=== PATIENT | female | born 1955 | race Hispanic/Latino ===

== ENCOUNTER 2020-03-07 02:27 | Inpatient (IN) | payer OTHER ==
[2020-03-07] MEDS ORDERED: MORPHINE 4 MG/ML SYR ONE (03:20)
[2020-03-07] MEDS ORDERED: ONDANSETRON 4 MG/2 ML VIAL ONE (03:20)
[2020-03-07] MEDS ORDERED: NA CHLORIDE 0.9% 500 ML ONE (03:20)
[2020-03-07] MEDS ORDERED: NA CHLORIDE 0.9% 1,000 ML ONE (03:20)
[2020-03-07] MEDS ORDERED: ASPIRIN 81 MG CHEWABLE TABLET ONE (03:27)
[2020-03-07 03:34] LABS: RBC Red Blood Cell Count 4.83 M/uL (3.86-4.86)
[2020-03-07 03:35] LABS: Absolute Lymphocytes (CBC) 2.2 K/uL (0.7-4.9); Lymphocytes % 26.9 % (15.3-44.8); MPV 7.7 fL (7.6-11.3)
[2020-03-07 03:56] LABS: ALT/SGPT 27 U/L (12-78); AST/SGOT 43 U/L (15-37); Albumin 3.4 g/dL (3.4-5.0); Alkaline Phosphatase 83 U/L (45-117); BUN Blood Urea Nitrogen 19 mg/dL (7-18); Bicarbonate 25 mmol/L (21-32); Bilirubin Direct < 0.1 mg/dL (0-0.2); Bilirubin Total 0.4 mg/dL (0.2-1.0); Glucose Level 123 mg/dL (74-106); Lipase 105 U/L (73-393); Magnesium 1.7 mg/dL (1.8-2.4); NT PRO-BNP 228 pg/mL (<125); Potassium 3.7 mmol/L (3.5-5.1); Protein, Total 7.7 g/dL (6.4-8.2); Sodium Level 139 mmol/L (136-145); Troponin (Emerg Dept Use Only) < 0.02 ng/mL (0.0-0.045)
[2020-03-07 04:04] LABS: Protime INR 1.01
[2020-03-07] MEDS ORDERED: Magnesium Sulfate 2gm IVPB 2 G/50 ML BAG IV ONE (04:20)
[2020-03-07] MEDS ORDERED: KETOROLAC 30 MG/ML INJ ONE (05:18)
--- NOTE | 2020-03-07 05:18 | ER ---
Nurse's Notes [facility] Name: Danika Hope Age: 64 yrs Sex: Female : 1955 Arrival Date: 03/07/2020 Time: 02:28 Bed 6 Private MD: Diagnosis: Pain in right leg-meastatic disease;Malignant neoplasm of unspecified site of left female breast-widely metastatic, axial and appendicular skeleton;Type 2 diabetes mellitus Presentation: 03/07 02:29 Chief complaint: EMS states: Pt reports mid back pain that started two months ago, pt ea reports it worsened today. Pt also complains of right knee pain. Reports she was diagnosed with breast cancer a week ago. Coronavirus screen: Proceed with normal triage. Ebola Screen: No symptoms or risks identified at this time. Initial Sepsis Screen: Does the patient meet any 2 criteria? No. Patient's initial sepsis screen is negative. Does the patient have a suspected source of infection? No. Patient's initial sepsis screen is negative. Risk Assessment: Do you want to hurt yourself or someone else? Patient reports no desire to harm self or others. Onset of symptoms was March 07, 2020. 02:29 Method Of Arrival: EMS: [facility] ea 02:29 Acuity: ANA 3 ea Triage Assessment: 02:33 General: Appears uncomfortable, Behavior is calm, cooperative, appropriate for age. ea Pain: Complains of pain in mid back area. Neuro: Level of Consciousness is awake, alert, obeys commands, Oriented to person, place, time, situation. Cardiovascular: Patient's skin is warm and dry. Respiratory: Airway is patent Respiratory effort is even, unlabored, Respiratory pattern is regular, symmetrical. Derm: Skin is pink, warm \T\ dry. Historical: - Allergies: 02:35 No Known Allergies; ea - Home Meds: 02:35 levothyroxine oral [Active]; Metformin Oral [Active]; ea - PMHx: 02:35 Hypothyroidism; Diabetes - NIDDM; ea - Immunization history:: Adult Immunizations not immunized. - Social history:: Smoking status: Patient/guardian denies using tobacco. - Family history:: not pertinent. Screenin:32 Abuse screen: Denies threats or abuse. Nutritional screening: No deficits noted. ea Tuberculosis screening: No symptoms or risk factors identified. Fall Risk None identified. Assessment: 02:33 Reassessment: see triage assessment. ea 04:32 Reassessment: Patient and/or family updated on plan of care and expected duration. Pain ea level reassessed. Patient is alert, oriented x 3, equal unlabored respirations, skin warm/dry/pink. Pt reports pain has decreased. 05:46 Reassessment: Patient and/or family updated on plan of care and expected duration. Pain ea level reassessed. Patient is alert, oriented x 3, equal unlabored respirations, skin warm/dry/pink. Awaiting on CT results. 06:10 Reassessment: Patient and/or family updated on plan of care and expected duration. Pain ea level reassessed. Patient is alert, oriented x 3, equal unlabored respirations, skin warm/dry/pink. Discharge instruction given to patient, verbalized the understanding of instruction. Pt awaiting on daughter to give her ride home. 06:16 Reassessment: Patient and/or family updated on plan of care and expected duration. Pain ea level reassessed. Patient is alert, oriented x 3, equal unlabored respirations, skin warm/dry/pink. Pt assisted to private vehicle, daughter at facility to transport pt home, pt tolerating well. 06:29 Reassessment: Pt complaining of right knee pain, pt reports she is unable to tolerate ea weight. Provider notified. Provider reported he would hospitalize pt, verbal order obtained to discontinue fentanyl patch 50 mcg. 07:00 Reassessment: RECD REPORT FROM BENJI FOX. 64YO HF P/W GENERALIZED PAIN 2/2 MT CANCER. bp ADMIT IN PROCESS. 07:30 Reassessment: DR DODD AT B/S. ADMIT CANCELLED, PT TBDC WHEN HOME HEALTH ARRANGED. bp 08:00 Reassessment: PER DR MEJIA AND DR KLINE, ADMIT TO PROCEED FOR PAIN CONTROL. ADMIT bp IN PROCESS. 10:46 Reassessment: ADMIT COMPLETE. bp Vital Signs: 02:29 BP 131 / 87; Pulse 68; Resp 18; Temp 98.1; Pulse Ox 98% on R/A; Weight 77.11 kg; Height ea 5 ft. 7 in. (170.18 cm); 04:33 BP 137 / 81; Pulse 55; Resp 18; Pulse Ox 98% ; ea 05:48 BP 110 / 67; Pulse 58; Resp 18; Pulse Ox 99% on R/A; ea 06:11 BP 114 / 67; Pulse 65; Resp 18; Temp 97.8; Pulse Ox 100% ; ea 07:00 BP 107 / 67; Pulse 60; Resp 16; Pulse Ox 94% ; bp 09:00 BP 113 / 71; Pulse 61; Resp 14; Pulse Ox 95% ; bp 10:44 BP 105 / 63; Pulse 61; Resp 15; Pulse Ox 94% ; bp 02:29 Body Mass Index 26.63 (77.11 kg, 170.18 cm) ea ED Course: 02:28 Patient arrived in ED. ds1 02:28 Ana Combs, DOMINIQUE is Primary Nurse. ea 02:30 Manas Kline MD is Attending Physician. lucy 02:32 Triage completed. ea 02:32 Patient has correct armband on for positive identification. Bed in low position. Call ea light in reach. Side rails up X2. 02:32 Arm band placed on right wrist. Patient placed in an exam room, on a stretcher, on ea pulse oximetry. 03:16 EKG done, by ED staff, reviewed by Manas Kline MD. jd3 03:22 XRAY Chest (1 view) In Process Unspecified. EDMS 03:23 Knee Right 3 View XRAY In Process Unspecified. EDMS 03:25 Inserted saline lock: 20 gauge in right antecubital area, using aseptic technique. tt3 03:30 Troponin (emerg Dept Use Only) Sent. ds4 03:30 PT-INR Sent. ds4 03:30 NT PRO-BNP Sent. ds4 03:30 Magnesium Sent. ds4 03:30 LFT's Sent. ds4 03:30 CBC with Diff Sent. ds4 03:30 Basic Metabolic Panel Sent. ds4 04:04 Notified ED physician of other ultrasound negative per Type Soldering Machine Tender. sg 04:05 UPPER EXTREMITY VENOUS UNILATE In Process Unspecified. EDMS 04:37 CT Aorta for Dissection In Process Unspecified. EDMS 05:13 Santa Mancilla MD is Referral Physician. lucy 06:10 No provider procedures requiring assistance completed. IV discontinued, intact, ea bleeding controlled, No redness/swelling at site. Pressure dressing applied. 06:28 Sanjiv Holliday MD is Hospitalizing Provider. lucy 06:45 Inserted saline lock: 20 gauge in right antecubital area, using aseptic technique. ds4 Missed attempt(s): 20 gauge in right antecubital area. Bleeding controlled, band aid applied, catheter tip intact. 07:05 Report given to Sheldon FOX. ea 07:12 Sheldon Alcantar, RN is Primary Nurse. bp Administered Medications: 03:10 Drug: NS 0.9% 500 ml Route: IV; Rate: bolus; Site: right antecubital; ea 04:30 Follow up: Response: No adverse reaction; IV Status: Completed infusion; IV Intake: ea 500ml 03:12 Drug: Zofran (Ondansetron) 4 mg Route: IVP; Site: right antecubital; ea 03:58 Follow up: Response: No adverse reaction ea 03:15 Drug: NS 0.9% 1000 ml Route: IV; Rate: 125 ml/hr; Site: right antecubital; ea 05:45 Follow up: Response: No adverse reaction; IV Status: Completed infusion ea 03:25 Drug: Aspirin Chewable Tablet 162 mg Route: PO; ea 03:58 Follow up: Response: No adverse reaction ea 03:27 Drug: morphine 2 mg {Note: RASS 1.} Route: IVP; Site: right antecubital; ea 03:45 Drug: morphine 2 mg Route: IVP; Site: right antecubital; ea 04:30 Follow up: Response: No adverse reaction; Pain is decreased; RASS: Alert and Calm (0) ea 04:30 Drug: Magnesium Sulfate 1 grams Route: IVPB; Infused Over: 1 hrs; Site: right ea antecubital; 05:30 Follow up: Response: No adverse reaction; IV Status: Completed infusion ea 05:29 Drug: TORadol 30 mg Route: IVP; Site: right antecubital; ea 05:44 Follow up: Response: No adverse reaction ea 05:29 Drug: fentaNYL Patch (50 mcg/hr) 1 patches Route: Transdermal; Site: anterior chest ea wall; 06:31 Follow up: Response: Other; verbal order obtained to discontinue patch, patch removed. ea 06:47 Drug: Dilaudid 0.5 mg {Note: RASS 1.} Route: IVP; Site: right upper arm; ea 06:58 Follow up: Response: No adverse reaction; Pain is decreased ea 06:48 Drug: Decadron - Dexamethasone 10 mg Route: IVP; Site: right upper arm; ea 06:58 Follow up: Response: No adverse reaction ea Intake: 04:30 IV: 500ml; Total: 500ml. ea Outcome: 05:17 Discharge ordered by . lucy 06:32 Decision to Hospitalize by Provider. lucy 10:42 Admitted to Med/surg accompanied by tech, via stretcher, room 229, with chart, Report bp called to ANALIA RN 10:42 Condition: stable 10:42 Instructed on the need for admit. 11:13 Patient left the ED. bp Signatures: Dispatcher [employer] EDMS Moy Musa RN Manas Diehl MD MD cha Sanford, Demi ds1 Alberto Quezada ds4 Ana Combs RN RN ea Davies, Jonathon, RN RN jSheldon Kramer RN RN bp Maverick, Zi tt3 Corrections: (The following items were deleted from the chart) 06:12 06:11 BP 114 / 67; Pulse 18bpm; Resp 65bpm; Pulse Ox 100%; Temp 97.8F; ea ea 06:27 05:29 fentaNYL Patch (50 mcg/hr) 1 patches Transdermal in anterior chest wall ea [facility] 06: 05:44 Response: No adverse reaction; Pain is decreased; RASS: Alert and Calm (0) ea lucy 43 06:16 Condition: stable ea bp 10:43 06:16 Discharge instructions given to patient, Instructed on discharge instructions, bp follow up and referral plans. medication usage, Demonstrated understanding of instructions, follow-up care, medications, Prescriptions given X 2, ea 06:16 Discharged to home via wheelchair, with family, ea bp
--- NOTE | 2020-03-07 05:18 | EDPHYS ---
Physician Documentation [facility] Name: Danika Hope Age: 64 yrs Sex: Female : 1955 Arrival Date: 03/07/2020 Time: 02:28 Bed 6 Private MD: Manas Ratliff HPI: 03/07 02:59 This 64 yrs old Female presents to ER via EMS with complaints of chest wall lucy pain, left arm swelling and right knee pain. 02:59 The patient or guardian complains of decreased range of motion, pain, swelling. The lucy complaints affect the left bicep, left antecubital area, dorsal aspect of left forearm, left tricep, left elbow and palmar aspect of left forearm. Context: resulted from cancer of left breast, infiltrating to left arm and axilla. Onset: The symptoms/episode began/occurred 3 day(s) ago. Treatment prior to arrival includes: no previous treatment. Modifying factors: The symptoms are alleviated by nothing. the symptoms are aggravated by nothing. The patient or guardian reports chest pain that is located primarily in the substernal area, anterior chest wall, chest diffusely. The pain does not radiate. Associated signs and symptoms: The patient has no apparent associated signs or symptoms. Historical: - Allergies: 02:35 No Known Allergies; ea - Home Meds: 02:35 levothyroxine oral [Active]; Metformin Oral [Active]; ea - PMHx: 02:35 Hypothyroidism; Diabetes - NIDDM; ea - Immunization history:: Adult Immunizations not immunized. - Social history:: Smoking status: Patient/guardian denies using tobacco. - Family history:: not pertinent. ROS: 02:59 Constitutional: Negative for fever, chills, and weight loss, Eyes: Negative for injury, lucy pain, redness, and discharge, ENT: Negative for injury, pain, and discharge, Neck: Negative for injury, pain, and swelling, Respiratory: Negative for shortness of breath, cough, wheezing, and pleuritic chest pain, Abdomen/GI: Negative for abdominal pain, nausea, vomiting, diarrhea, and constipation, Back: Negative for injury and pain, : Negative for injury, bleeding, discharge, and swelling, Skin: Negative for injury, rash, and discoloration, Neuro: Negative for headache, weakness, numbness, tingling, and seizure, Psych: Negative for depression, anxiety, suicide ideation, homicidal ideation, and hallucinations, Allergy/Immunology: Negative for hives, rash, and allergies, Endocrine: Negative for neck swelling, polydipsia, polyuria, polyphagia, and marked weight changes, Hematologic/Lymphatic: Negative for swollen nodes, abnormal bleeding, and unusual bruising. 02:59 Cardiovascular: Positive for chest pain, with movement. 02:59 Respiratory: Positive for cough, shortness of breath, on exertion. 02:59 MS/extremity: Positive for decreased range of motion, pain, swelling, tenderness, of the left arm. Exam: 02:59 Constitutional: This is a well developed, well nourished patient who is awake, alert, lucy and in no acute distress. Head/Face: Normocephalic, atraumatic. Eyes: Pupils equal round and reactive to light, extra-ocular motions intact. Lids and lashes normal. Conjunctiva and sclera are non-icteric and not injected. Cornea within normal limits. Periorbital areas with no swelling, redness, or edema. ENT: Nares patent. No nasal discharge, no septal abnormalities noted. Tympanic membranes are normal and external auditory canals are clear. Oropharynx with no redness, swelling, or masses, exudates, or evidence of obstruction, uvula midline. Mucous membranes moist. Neck: Trachea midline, no thyromegaly or masses palpated, and no cervical lymphadenopathy. Supple, full range of motion without nuchal rigidity, or vertebral point tenderness. No Meningismus. Cardiovascular: Regular rate and rhythm with a normal S1 and S2. No gallops, murmurs, or rubs. Normal PMI, no JVD. No pulse deficits. Respiratory: Lungs have equal breath sounds bilaterally, clear to auscultation and percussion. No rales, rhonchi or wheezes noted. No increased work of breathing, no retractions or nasal flaring. Back: No spinal tenderness. No costovertebral tenderness. Full range of motion. Female : Normal external genitalia. Skin: Warm, dry with normal turgor. Normal color with no rashes, no lesions, and no evidence of cellulitis. Neuro: Awake and alert, GCS 15, oriented to person, place, time, and situation. Cranial nerves II-XII grossly intact. Motor strength 5/5 in all extremities. Sensory grossly intact. Cerebellar exam normal. Normal gait. Psych: Awake, alert, with orientation to person, place and time. Behavior, mood, and affect are within normal limits. 02:59 Chest/axilla: Inspection: no acute changes, Palpation: tenderness, that is mild, that is moderate, of the anterior aspect of left upper chest, left lateral posterior chest, left lateral anterior chest, left nipple and left breast, Axilla: lymphadenopathy, that is large, mass, that is moderate in size, Breasts: swelling, tenderness, that is moderate, of the left breast, Lymph nodes: supraclavicular nodes, Axillary nodes are 02:59 Musculoskeletal/extremity: DVT Exam: no swelling, no tenderness, negative Homans' sign noted on exam, no appreciated bluish discoloration, no erythema, no increased warmth, pain, that is mild, of the right leg, of the right knee. 03:14 ECG was reviewed by the Attending Physician. [facility] Vital Signs: 02:29 BP 131 / 87; Pulse 68; Resp 18; Temp 98.1; Pulse Ox 98% on R/A; Weight 77.11 kg; Height ea 5 ft. 7 in. (170.18 cm); 04:33 BP 137 / 81; Pulse 55; Resp 18; Pulse Ox 98% ; ea 05:48 BP 110 / 67; Pulse 58; Resp 18; Pulse Ox 99% on R/A; ea 06:11 BP 114 / 67; Pulse 65; Resp 18; Temp 97.8; Pulse Ox 100% ; ea 07:00 BP 107 / 67; Pulse 60; Resp 16; Pulse Ox 94% ; bp 09:00 BP 113 / 71; Pulse 61; Resp 14; Pulse Ox 95% ; bp 10:44 BP 105 / 63; Pulse 61; Resp 15; Pulse Ox 94% ; bp 02:29 Body Mass Index 26.63 (77.11 kg, 170.18 cm) ea MDM: 02:34 Patient medically screened. [facility] 03:10 Data reviewed: vital signs, nurses notes, lab test result(s), EKG, radiologic studies, [facility] CT scan, plain films. 03:11 Differential diagnosis: contusion, coronary artery disease chest wall pain, congestive lucy heart failure hiatal hernia, pancreatitis, pleurisy, pulmonary embolus. HEART Score: History: Slightly Suspicious (0), ECG: Normal (0), Age: > 45 and < 65 years (1), Risk Factors: 1 or 2 risk factors (1), [DM] [+ Family HX] Troponin: < or = 1 x Normal Limit (0). The patient was given aspirin in the Emergency Department. The patient's deep vein thrombosis risk score was calculated as follows: the patient is receiving ongoing or pallative cancer treatment (1.0 Pts) Total Score: 1 to 2 points. This patient was found to be at moderate risk for a deep vein thrombosis by using the Well's assessment criteria. The patient's pulmonary embolism risk score was calculated as follows: suspected deep vein thrombosis (3 Pts) patient has experienced immobilization or surgery in the last four weeks (1.5 Pts) malignancy Total Score: 3-6 points. This patient was found to be at moderate risk for a pulmonary embolism by using the Well's assessment criteria. JENNIFER Risk Score: TOTAL SCORE = 0. 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 Test interpretation: by ED physician or midlevel provider: ECG, plain radiologic studies. Counseling: I had a detailed discussion with the patient and/or guardian regarding: the historical points, exam findings, and any diagnostic results supporting the discharge/admit diagnosis, lab results, radiology results, the need for further work-up and treatment in the hospital. 05:19 Medication response: Zofran markedly relieved the patient's nausea. Awaiting: CT scan lucy results. ED course: widely metastatic breast cancer, extensive bony metastisis. 05:43 ED course: pt will keep follow up as scheduled with oncology in [place]. [facility] 03/07 02:55 Order name: Basic Metabolic Panel; Complete Time: 04:08 lucy 03/07 02:55 Order name: CBC with Diff; Complete Time: 03:40 lucy 03/07 02:55 Order name: LFT's; Complete Time: 04:08 03/07 02:55 Order name: Magnesium; Complete Time: 04:08 lucy 03/07 02:55 Order name: NT PRO-BNP; Complete Time: 04:08 03/07 02:55 Order name: PT-INR; Complete Time: 04:27 lucy 03/07 02:55 Order name: Troponin (emerg Dept Use Only); Complete Time: 04:08 [facility] 03/07 02:55 Order name: XRAY Chest (1 view) [facility] 03/07 02:55 Order name: Lipase; Complete Time: 04:08 [facility] 03/07 02:55 Order name: CT Aorta for Dissection [facility] 03/07 02:55 Order name: Knee Right 3 View XRAY [facility] 03/07 03:39 Order name: UPPER EXTREMITY VENOUS UNILATE EDMD 03/07 02:55 Order name: EKG; Complete Time: 02:57 [facility] 03/07 02:55 Order name: Cardiac monitoring; Complete Time: 03:16 [facility] 03/07 02:55 Order name: EKG - Nurse/Tech; Complete Time: 03:16 [facility] 03/07 02:55 Order name: IV Saline Lock; Complete Time: 03:29 [facility] 03/07 02:55 Order name: Labs collected and sent; Complete Time: 03:29 [facility] 03/07 02:55 Order name: O2 Per Protocol; Complete Time: 03:08 [facility] 03/07 02:55 Order name: O2 Sat Monitoring; Complete Time: 03:08 [facility] 03/07 03:38 Order name: Labs - recollect needed: a blue top please; Complete Time: 03:56 sg EC:14 Rate is 59 beats/min. Rhythm is regular. QRS Baldwin is Normal. MA interval is normal. QRS lucy interval is normal. QT interval is normal. No Q waves. T waves are Normal. No ST changes noted. Clinical impression: Sinus bradycardia and No evidence of ischemia. Interpreted by me. Reviewed by me. Administered Medications: 03:10 Drug: NS 0.9% 500 ml Route: IV; Rate: bolus; Site: right antecubital; ea 04:30 Follow up: Response: No adverse reaction; IV Status: Completed infusion; IV Intake: ea 500ml 03:12 Drug: Zofran (Ondansetron) 4 mg Route: IVP; Site: right antecubital; ea 03:58 Follow up: Response: No adverse reaction ea 03:15 Drug: NS 0.9% 1000 ml Route: IV; Rate: 125 ml/hr; Site: right antecubital; ea 05:45 Follow up: Response: No adverse reaction; IV Status: Completed infusion ea 03:25 Drug: Aspirin Chewable Tablet 162 mg Route: PO; ea 03:58 Follow up: Response: No adverse reaction ea 03:27 Drug: morphine 2 mg {Note: RASS 1.} Route: IVP; Site: right antecubital; ea 03:45 Drug: morphine 2 mg Route: IVP; Site: right antecubital; ea 04:30 Follow up: Response: No adverse reaction; Pain is decreased; RASS: Alert and Calm (0) ea 04:30 Drug: Magnesium Sulfate 1 grams Route: IVPB; Infused Over: 1 hrs; Site: right ea antecubital; 05:30 Follow up: Response: No adverse reaction; IV Status: Completed infusion ea 05:29 Drug: TORadol 30 mg Route: IVP; Site: right antecubital; ea 05:44 Follow up: Response: No adverse reaction ea 05:29 Drug: fentaNYL Patch (50 mcg/hr) 1 patches Route: Transdermal; Site: anterior chest ea wall; 06:31 Follow up: Response: Other; verbal order obtained to discontinue patch, patch removed. ea 06:47 Drug: Dilaudid 0.5 mg {Note: RASS 1.} Route: IVP; Site: right upper arm; ea 06:58 Follow up: Response: No adverse reaction; Pain is decreased ea 06:48 Drug: Decadron - Dexamethasone 10 mg Route: IVP; Site: right upper arm; ea 06:58 Follow up: Response: No adverse reaction ea Disposition: 03/07/20 06:32 Hospitalization ordered by Sanjiv Holliday for Inpatient Admission. Preliminary diagnosis are Pain in right leg - meastatic disease, Malignant neoplasm of unspecified site of left female breast - widely metastatic, axial and appendicular skeleton, Type 2 diabetes mellitus. - Bed requested for Telemetry/MedSurg (Inpatient). - Status is Inpatient Admission. bp - Condition is Fair. - Problem is new. - Symptoms have improved. Signatures: Dispatcher [employer] EDLea Mcfadden RN RN dw Gay, Steven, RN RN sg Anderson, Corey, MD MD cha Antunez, Elena, RN RN ea Peltier, Brian, RN RN bp Corrections: (The following items were deleted from the chart) 03:16 02:57 Angio Aorta For Dissection+CT.RAD.BRZ ordered. EDMS EDMS 03:29 02:42 Urine Dipstick-Ancillary ordered. alex jd3 03:38 03:37 Extremity Venous Uni Ltd+US.RAD.BRZ ordered. EDMD EDMS 03:39 03:38 Extrem Venous W Compress Jose A ordered. EDMD EDMS 05:37 05:17 03/07/2020 05:17 Discharged to Home. Impression: Malignant neoplasm of lucy unspecified site of left female breast - widlely metastatic; Type 2 diabetes mellitus. Condition is Stable. Forms are Medication Reconciliation Form, Thank You Letter, Antibiotic Education, Prescription Opioid Use. Follow up: Private Physician; When: 2 - 3 days; Reason: Recheck today's complaints, Continuance of care, Re-evaluation by your physician. Follow up: [place]; When: 2 - 3 days; Reason: Recheck today's complaints, Continuance of care, Re-evaluation by your physician. Problem is new. Symptoms have improved. [facility] 06:27 05:37 03/07/2020 05:17 Discharged to Home. Impression: Malignant neoplasm of lucy unspecified site of left female breast - widlely metastatic; Type 2 diabetes mellitus; Low back pain; Acute pain, not elsewhere classified. Condition is Stable. Discharge Instructions: Type 2 Diabetes Mellitus, Diagnosis, Adult, Breast Cancer, Female, Breast Biopsy, Care After, [id number], Type 2 Diabetes Mellitus, Diagnosis, Adult, [id number]. Prescriptions for Tylenol-Codeine #3 300-30 mg Oral Tablet - take 2 tablet by ORAL route every 6 hours As needed; 30 tablet, Motrin IB 200 mg Oral Tablet - take 2 tablet by ORAL route every 6 hours As needed as needed with food; 30 tablet. and Forms are Medication Reconciliation Form, Thank You Letter, Antibiotic Education, Prescription Opioid Use. Follow up: Private Physician; When: 2 - 3 days; Reason: Recheck today's complaints, Continuance of care, Re-evaluation by your physician. Follow up: [place]; When: 2 - 3 days; Reason: Recheck today's complaints, Continuance of care, Re-evaluation by your physician. Problem is new. Symptoms have improved. [facility] 09:57 06:32 Hospitalization Ordered by Sanjiv Holliday MD for Inpatient Admission. Preliminary dw diagnosis is Pain in right leg - meastatic disease; Malignant neoplasm of unspecified site of left female breast - widely metastatic, axial and appendicular skeleton; Type 2 diabetes mellitus. Bed requested for Telemetry/MedSurg (Inpatient). Status is Inpatient Admission. Condition is Fair. Problem is new. Symptoms have improved. [facility] 11:13 09:57 03/07/2020 06:32 Hospitalization Ordered by Sanjiv Holliday MD for Inpatient bp Admission. Preliminary diagnosis is Pain in right leg - meastatic disease; Malignant neoplasm of unspecified site of left female breast - widely metastatic, axial and appendicular skeleton; Type 2 diabetes mellitus. Bed requested for Telemetry/MedSurg (Inpatient). Status is Inpatient Admission. Condition is Fair. Problem is new. Symptoms have improved. dw
[2020-03-07] MEDS ORDERED: FENTANYL 50 MCG/PATCH TD ONE (05:31)
[2020-03-07] MEDS ORDERED: HYDROMORPHONE HCL 0.5 MG/0.5 ML INJ ONE (06:42)
[2020-03-07] MEDS ORDERED: dexAMETHasone 10 MG/ML VIAL ONE (06:42)
--- NOTE | 2020-03-07 07:33 | RAD REPORT ---
EXAM DESCRIPTION: US - UPPER EXTREMITY VENOUS UNILATE - 03/07/2020 4:10 am CLINICAL HISTORY: /left arm swelling. COMPARISON: None. FINDINGS: Left internal jugular vein, left subclavian vein, left axillary vein, left brachial vein, left cephalic, left basilic, left ulnar and left radial veins demonstrate phasic signal. The veins ar e compressible. Doppler demonstrates good flow. . IMPRESSION: No sonographic evidence of thrombus involving the left upper extremity veins.
--- NOTE | 2020-03-07 07:41 | RAD REPORT ---
EXAM DESCRIPTION: Christ Single View03/07/2020 3:22 am CLINICAL HISTORY: Chest pain COMPARISON: none FINDINGS: Small left pleural effusion with left basilar opacity. Right lung appears clear The heart is normal size IMPRESSION: Small left pleural effusion. Left basilar opacity may represent atelectasis or pneumoni a
--- NOTE | 2020-03-07 07:56 | RAD REPORT ---
EXAM DESCRIPTION: RAD - Knee Right 3 View - 03/07/2020 3:23 am CLINICAL HISTORY: Right knee pain FINDINGS: No fracture or dislocation is seen. No significant bone or joint abnormality
--- NOTE | 2020-03-07 08:54 | RAD REPORT ---
EXAM DESCRIPTION: CT - Angio Aorta For Dissection - 03/07/2020 5:45 am ADDENDUM #1 THIS REPORT CONTAINS FINDINGS THAT MAY BE CRITICAL TO PATIENT CARE: The findings were verbally discussed via telephone conference with Dr. Manas Simmons by Dr. Kirk Estrada on 4:52 AM CDT .The results were acknowledged and understood. The patient has a history of known malignant breast cancer. IMPRESSION: 1. No evidence of aneurysm or dissection. 2. Extensive adenopathy along the left chest wall, left axilla, and supraclavicular region coupled with diffuse skin thickening of the left breast. Findings are most concerning for breast cancer. 3. Extensive bony metastasis throughout the visualized axial and appendicular skeleton. There is he ight loss of the L4 vertebral body without retropulsion. 4. Moderate left pleural effusion with associated atelectasis. Electronically signed by: Edilma Estrada MD 03/07/2020 4:54 AM CDT End of Addendum EXAM DESCRIPTION: CT Angiography Chest, Abdomen and Pelvis With Intravenous Contrast CLINICAL HISTORY: The patient is 64 years old and is Female; Chest pain;Dyspnea;Pain;PE;Rib Pain - L eft TECHNIQUE: Axial computed tomographic angiography images of the chest, abdomen and pelvis with intra venous contrast. Sagittal and coronal reformatted images were created and reviewed. This CT exam was performed using one or more of the following dose reduction techniques: automated exposure cont rol, adjustment of the mA and/or kV according to patient size, and/or use of iterative reconstruction technique. MIP reconstructed images were created and reviewed. COMPARISON: No relevant prior studies available. FINDINGS: VASCULATURE: AORTA: No acute findings. No aortic aneurysm. No dissection. PULMONARY ARTERIES: Unremarkable as visualized. No pulmonary embolism is identified. GREAT VESSELS OF AORTIC ARCH: No acute findings. No dissection. No arterial occlusion or sig nificant stenosis. CELIAC TRUNK AND MESENTERIC ARTERIES: No acute findings. No occlusion or significant stenosis. RENAL ARTERIES: No acute findings. No occlusion or significant stenosis. ILIAC ARTERIES: No acute findings. No occlusion or significant stenosis. CHEST: LUNGS: Compressive atelectasis within the left lower lobe is noted. The right lung is relative ly clear. PLEURAL SPACE: A moderate-sized left pleural effusion is present. No pneumothorax. HEART: Unremarkable. No cardiomegaly. No significant pericardial effusion. ABDOMEN: LIVER: The liver is mildly fatty. GALLBLADDER AND BILE DUCTS: Unremarkable. No calcified stones. No ductal dilation. PANCREAS: Unremarkable. No ductal dilation. No mass. SPLEEN: Unremarkable. No splenomegaly. ADRENALS: Unremarkable. No mass. KIDNEYS AND URETERS: Unremarkable. No hydronephrosis. No solid mass. STOMACH AND BOWEL: The stomach is decompressed. The small bowel is normal in caliber. Stool is n oted throughout the colon. There is no mucosal thickening or evidence of bowel obstruction. PELVIS: APPENDIX: No findings to suggest acute appendicitis. BLADDER: Unremarkable. No mass. REPRODUCTIVE: Unremarkable as visualized. CHEST, ABDOMEN and PELVIS: INTRAPERITONEAL SPACE: Unremarkable. No significant fluid collection. No free air. BONES/JOINTS: Extensive scattered lucent foci are noted throughout the visualized axial and appe ndicular skeleton. No acute fracture. No dislocation. SOFT TISSUES: Diffuse skin thickening of the left breast is noted. Edema of the soft tissues of the left breast is present. LYMPH NODES: Multiple enlarged left axillary and supraclavicular lymph nodes are present. Surrou nding inflammation and edema is noted. IMPRESSION: 1. No evidence of aneurysm or dissection. 2. Extensive adenopathy along the left chest wall, left axilla, and supraclavicular region coupled with diffuse skin thickening of the left breast. Findings are most concerning for breast cancer. 3. Extensive bony metastasis throughout the visualized axial and appendicular skeleton. Electronically signed by: Edilma Estrada MD 03/07/2020 4:49 AM CDT Due to temporary technical issues with the PACS/Fluency reporting system, reports are being signed by the in house radiologist without review as a courtesy to ensure prompt reporting. The interpreting r adiologist is fully responsible for the content of the report.
--- NOTE | 2020-03-07 09:54 | EKG ---
Test Date: 2020-03-07 Test Time: 03:14:19 Mat Tester: MIA MEASUREMENT RESULTS: Intervals: Rate: 59 MN: 132 QRSD: 104 QT: 398 QTc: 394 [place]: P: 47 MN: 132 QRS: 12 T: 41 INTERPRETIVE STATEMENTS: Sinus bradycardia Cannot rule out Anterior infarct, age undetermined Abnormal ECG Compared to ECG 01/02/1997 15:42:00 Myocardial infarct finding now present Sinus rhythm no longer present Electronically Signed On 03-07-20 09:53:47 CDT by Javier Moore
[2020-03-07 11:57] VITALS: BMI 26.6
[2020-03-07] MEDS ORDERED: NA CHLORIDE 0.9% 1,000 ML IV SCH (12:04)
[2020-03-07] MEDS: INSULIN -REGULAR HUMAN 50 UNIT/0.5 ML ML SQ SCH ×3 (12:04→20:17)
[2020-03-07] MEDS ORDERED: ACETAMINOPHEN 500 MG TAB PO PRN (12:04)
[2020-03-07] MEDS ORDERED: TRAMADOL HCL 50 MG TAB PO PRN (12:04)
[2020-03-07] MEDS: ENOXAPARIN 40 MG/0.4 ML SQ SCH (12:55)
[2020-03-07] MEDS: LIDOCAINE 4% PATCH TOP SCH (12:56)
--- NOTE | 2020-03-07 13:08 | P.HP ---
Certification for Inpatient Patient admitted to: Observation With expected LOS: <2 Midnights Patient will require the following post-hospital care: Home Health Services Practitioner: I am a practitioner with admitting privileges, knowledge of patient current condition, hospital course, and medical plan of care. Services: Services provided to patient in accordance with Admission requirements found in Title 42 Section 412.3 of the Code of Federal Regulations Patient History Date of Service: 03/07/20 Primary Care Provider: Dina Sarmiento NP; Oncology-[facility] Reason for admission: Extremity pain History of Present Illness: 64-year-old female with history of diabetes, hypothyroidism, and recent diagnosis of stage IV ductal breast cancer. Patient presented to the emergency room with pain to the upper extremity and knees bilateral. Patient had recent diagnosis of stage IV ductal breast cancer. She had been given medication for pain. She ran out of medication. She denies any chest pain, shortness of breath. She denies any significant nausea, vomiting. Patient came to the ER for further evaluation. In the ER patient evaluated. CBC unremarkable. Sodium 139, potassium 3.7. BUN of 19, creatinine 1.06 with a GFR 52. Glucose 123. Magnesium 1.7. Venous Doppler of the extremity showed no DVT. X-ray shows fracture. CT scan shows no evidence of aneurysm or dissection. Extensive adenopathy along the left chest wall, left axilla, supraclavicular region coupled with diffuse skin thickening of the left breast indicative of breast cancer. Extensive bony metastasis throughout the axial and appendicular skeleton noted. Moderate left pleural effusion with some atelectasis noted. Patient was given multiple rounds of medication for pain in the emergency room. She was to be discharge but patient continued with intractable pain. She was also a fall risk. I was asked to admit the patient for observation. When I saw the patient ER, she appeared comfortable after been given pain medication. Patient reports that she is to follow up with oncology March 12 at [facility] for further evaluation and treatment for her cancer. Allergies No Known Allergies Allergy (Unverified 03/07/20 11:49) Home medications list reviewed: Yes Home Medications: RX: Levothyroxine Sodium 137 mcg PO [id number] 03/07/20 RX: Metformin HCl 1,000 mg PO BID 6AM 6PM 03/07/20 - Past Medical/Surgical History Has patient received pneumonia vaccine in the past: No Diabetic: Yes -: Diabetes mellitus type 2 [id number] -: Hypothyroidism -: Stage IV ductal breast cancer -: Tendon Repair -: Bunion Removal Psychosocial/ Personal History: Patient lives at home - Family History Family History: Reviewed- Non-Contributory - Social History Smoking Status: Former smoker Alcohol use: No CD- Drugs: No Caffeine use: No Place of Residence: Home Review of Systems General: Weakness, As per HPI Eyes: Unremarkable ENT: Unremarkable Respiratory: Unremarkable Cardiovascular: Unremarkable Gastrointestinal: Unremarkable Genitourinary: Unremarkable Musculoskeletal: Shoulder Pain, Arm Pain, Back Pain, Hand Pain, Leg Pain, As per HPI Integumentary: Unremarkable Neurological: Unremarkable Lymphatics: As per HPI Physical Examination - Vital Signs Temperature: 97.8 F Blood Pressure: 105/63 Pulse: 61 Respirations: 15 - Physical Exam General: Alert, In no apparent distress, Oriented x3, Cooperative HEENT: Atraumatic Neck: Supple Respiratory: Clear to auscultation bilaterally, Normal air movement Cardiovascular: Normal pulses, Regular rate/rhythm Gastrointestinal: Normal bowel sounds, Soft and benign, Non-distended, No masses, No rebound, No guarding Musculoskeletal: Other (Pain to the lower extremities noted) Integumentary: Other (Breast exam not done but patient reports of breast cancer to the left side with adenopathy) Neurological: Normal speech, Normal strength at 5/5 x4 extr, Normal tone, Normal affect, Other (Patient had difficulty with standing. Pain with movement noted) - Studies Laboratory Data (last 24 hrs) 03/07/20 03:40: PT 11.9, INR 1.01 03/07/20 03:20: WBC 8.3, Hgb 14.9, Hct 43.0, Plt Count 383 03/07/20 03:20: Sodium 139, Potassium 3.7, BUN 19 H, Creatinine 1.06, Glucose 123 H, Magnesium 1.7 L, Total Bilirubin 0.4, AST 43 H, ALT 27, Alkaline Phosphatase 83, Lipase 105 Assessment and Plan - Plan Impression: Intractable pain to numerous joints related to stage IV ductal breast cancer with metastasis to the skeleton Diabetes mellitus type 2 [id number]-apmfkdums Hypothyroidism Moderate left Pleural effusion with atelectasis likely chronic Acute renal injury likely dehydration Plan: Intractable pain to numerous joints related to stage IV ductal breast cancer with metastasis to the skeleton: Patient will be admitted for further evaluation and observation. Will provide medication for pain at different levels. Will have physical therapy assess ambulation. Will consult social work lecturer to help with set up of home health and physical therapy at discharge. Will try to get pain better controlled prior to discharge. Patient has appointment with Oncology March 12 for further evaluation and discussion of treatment at [facility]. Will provide DVT prophylaxis. Anticipate discharge in the next 24 hr. Diabetes mellitus type 2 [id number]: Will continue Accu-Cheks and sliding scale. Will check A1c. Hypothyroidism: Continue home medication. Will check tsh Moderate left Pleural effusion with atelectasis likely chronic: Will provide incentive spirometer. Will monitor closely. Pleural effusion likely malignant in nature related to breast cancer. Acute renal injury likely dehydration: Will provide supplemental nutrition. Will provide short course of IV fluids. Discharge Plan: Home Plan to discharge in: 24 Hours - Advance Directives Does patient have a Living Will: No Does patient have a Durable POA for Healthcare: No - Code Status/Comfort Care Code Status Assessed: Yes (Patient is full code) Time Spent Managing Pts Care (In Minutes): 55
[2020-03-07] MEDS: MORPHINE 2 MG/ML SYR IV PRN ×2 (13:36→20:17)
[2020-03-07] MEDS: ENSURE HIGH PROTEIN 237 ML CAN PO SCH (20:17)
[2020-03-08] MEDS ORDERED: HOME MED 1 EA UNK (Levothyroxine Sodium [Levothyroxine Sodium] 137 MCG) PO SCH (06:00)
[2020-03-08] MEDS: LEVOTHYROXINE SOD 0.112 MG TAB PO SCH (06:16)
[2020-03-08] MEDS: LEVOTHYROXINE SOD 0.025 MG TAB PO SCH (06:16)
[2020-03-08] MEDS: MORPHINE 2 MG/ML SYR IV PRN ×2 (06:20→13:56)
[2020-03-08 06:22] LABS: Absolute Lymphocytes (CBC) 2.9 K/uL (0.7-4.9); Basophils % 0.7 % (0-1.3); Hematocrit 37.8 % (36.0-45.0); Lymphocytes % 29.1 % (15.3-44.8); RBC Red Blood Cell Count 4.27 M/uL (3.86-4.86)
[2020-03-08 06:53] LABS: Potassium 3.9 mmol/L (3.5-5.1); Thyroid Stimulating Hormone 2.37 uIU/mL (0.360-3.740)
[2020-03-08] MEDS: INSULIN -REGULAR HUMAN 50 UNIT/0.5 ML ML SQ SCH ×4 (07:26→21:00)
[2020-03-08] MEDS: ENOXAPARIN 40 MG/0.4 ML SQ SCH (08:27)
[2020-03-08] MEDS: LIDOCAINE 4% PATCH TOP SCH (08:28)
[2020-03-08] MEDS: ENSURE HIGH PROTEIN 237 ML CAN PO SCH ×2 (08:28→21:37)
[2020-03-08] MEDS: HYDROCODONE/APAP 7.5/325 MG TAB PO PRN ×2 (10:15→21:36)
[2020-03-08] MEDS ORDERED: GABAPENTIN 100 MG CAP PO PRN (13:33)
--- NOTE | 2020-03-08 14:43 | RAD REPORT ---
EXAM DESCRIPTION: RAD - Hip Left 2 View - 03/08/2020 2:34 pm CLINICAL HISTORY: Left hip pain FINDINGS: No fracture or dislocation is seen. Edema within the soft tissue
--- NOTE | 2020-03-08 16:31 | P.PN ---
Subjective Date of Service: 03/08/20 Primary Care Provider: Dina Sarmiento NP; Oncology-[facility] Chief Complaint: Extremity pain Subjective: Other (Patient doing well as long as she does not move. Pain with movement) Physical Examination - Vital Signs Temperature: 97.5 F Blood Pressure: 103/55 Pulse: 62 Respirations: 16 Pulse Ox (%): 95 - Physical Exam General: Alert, Oriented x3, Cooperative HEENT: Atraumatic Neck: Supple Respiratory: Clear to auscultation bilaterally, Normal air movement Cardiovascular: Normal pulses, Regular rate/rhythm Gastrointestinal: Normal bowel sounds, No tenderness, No masses, No rebound, No guarding Musculoskeletal: Other (Pain with movement to the joints. patient not able to stand) Neurological: Normal speech, Normal tone, Normal affect - Studies Medications List Reviewed: Yes Assessment & Plan Discharge Plan: Home Plan to discharge in: 48 Hours Physician Review Additional Text: Impression: Intractable pain to numerous joints related to stage IV ductal breast cancer with metastasis to the skeleton Diabetes mellitus type 2 [id number]-[id number] Hypothyroidism Moderate left Pleural effusion with atelectasis likely chronic Acute renal injury likely dehydration Plan: Intractable pain to numerous joints related to stage IV ductal breast cancer with metastasis to the skeleton: Patient not able to stay and. Patient very high risk for falls. Physical therapy continues to work with patient. Continue pain medication. Pain primarily when she is moving. Case discussed at length with oncology. Oncology plans for chemotherapy next week. Social work is arranging for home health, stu lift, wheelchair and hospital bed. This will likely occur over the next 24-72 hr. During this time will continue to work with physical therapy. Oncology plans for MRI of spine and brain Anticipate discharge home on Wednesday. Diabetes mellitus type 2 sdv-ggfpjui-[id number]: Will continue Accu-Cheks and sliding scale. Will check A1c. Hypothyroidism: Continue home medication. Tsh within normal range Moderate left Pleural effusion with atelectasis likely chronic: Will provide incentive spirometer. Will monitor closely. Pleural effusion likely malignant in nature related to breast cancer. Acute renal injury likely dehydration: Will provide supplemental nutrition. Time Spent Managing Pts Care (In Minutes): 55
--- NOTE | 2020-03-08 21:04 | RAD REPORT ---
EXAM DESCRIPTION: MRI - Spine Lumbar W/Wo Cont - 03/08/2020 8:51 pm CLINICAL HISTORY: Breast cancer with bone metastases. Back pain COMPARISON: None. TECHNIQUE: Sagittal T1, T2 and STIR weighted sequences were obtained. Axial T1 and T2 sequences were obtained through the lumbar disc levels. 12 cc MultiHance administered intravenously FINDINGS: Abnormal signal is present throughout all of the lumbar vertebra consistent with metastase s. It is most marked at L4 in which there is a mild to moderate compression fracture. No retropulsion of fracture fragment into the spinal canal Abnormal signal also involves visualized T11 and T12 vertebra. All of these areas demonstrate enhance ment. Abnormal enhancement within the spinal canal is not demonstrated. IMPRESSION: Metastatic disease involving all of the lower thoracic and lumbar vertebra. Mild to moderate pathologic compression fracture L4 without retropulsion of fracture fragment into th e spinal canal No central spinal stenosis .
--- NOTE | 2020-03-08 21:10 | RAD REPORT ---
EXAM DESCRIPTION: MRI - MRI SACRUM W/WO - 03/08/2020 8:51 pm CLINICAL HISTORY: Breast cancer with bony metastases. Back pain COMPARISON: none TECHNIQUE: Axial, sagittal, and coronal magnetic images of the sacrum obtained. 12 cc MultiHance adm inistered intravenously FINDINGS: Extensive abnormal signal is present throughout the sacrum and yvette. Abnormal signal is al so visualized within the left and right acetabulum. Small areas of abnormal signal are visualized wit hin the femoral heads. All of these areas demonstrate enhancement and are compatible with metastases. The lesions vary in size from a few millimeters ten 19 millimeters. No abnormal signal is seen within the sacral spinal canal. Epidural lipomatosis involves the lower sacral spinal canal Uterine fibroids IMPRESSION: Extensive metastatic disease involving the sacrum, yvette, acetabuli and femora
--- NOTE | 2020-03-08 21:19 | RAD REPORT ---
EXAM DESCRIPTION: MRI - Brain W/Wo Cont - 03/08/2020 8:51 pm CLINICAL HISTORY: Breast cancer with metastases COMPARISON: None TECHNIQUE: Axial, sagittal, and coronal magnetic images of the brain were obtained. 12 cc MultiHance administered intravenously FINDINGS: 8 millimeter area of enhancement is present within the superior aspect of the left tempora l lobe. Lesions are visualized within the frontal and parietal bones which enhances consistent with metastase s 8 millimeter lesion is present within the clivus The ventricles are normal in caliber. Diffusion-weighted/ ADC mapping sequences do not demonstrate evidence of an acute infarction. An extra-axial fluid collection is not noted. Fluid within the sinuses/mastoids is not seen IMPRESSION: Metastatic disease involving the left cerebrum, skull and clivus
--- NOTE | 2020-03-08 23:22 | P.CNS ---
Date of Consult: 03/08/20 (Oncology) Reason for consultation: Metastatic breast cancer HPI: Patient is a pleasant 64-year-old female admitted now for management of intractable bone pain. She endorses a recent diagnosis of breast cancer when she was admitted in [facility] for similar complaints. Apparently she had intolerable pains in the lower extremities, left hip and lower back and worsening left upper extremity swelling. She was scheduled to be seen in [facility] next week. Patient feeling a mass sometime in early December 2019 but did not have health insurance to seek medical attention. Last mammogram was many years ago. She denies any chest pain, shortness of breath, N/V, blurred vision, weakness, abd pain, neuropathy/ paresthesia, incontinence. When asked, she said some mild headaches but did not feel it was unusual or intolerable. When seen today in her room, she seemed uncomfortable and having her lunch. Daughter at bedside. A 14 point ROS was done and pertinent points as in HPI. Allergies No Known Allergies Allergy Home Medications: RX: Levothyroxine Sodium 137 mcg PO DAILY RX: Metformin HCl 1,000 mg PO BID - Past Medical/Surgical History -: Diabetes mellitus type 2 [id number]-[id number] -: Hypothyroidism -: Tendon Repair -: Bunion Removal Psychosocial/ Personal History: Patient lives at home - Family History Family History: Reviewed- Non-Contributory - Social History Extensive smoker- 1-2 pk a day for 40 years. Quit just 2 days ago Social occasional Alcohol use; Denies recreational Drug use Physical Examination - Vital Signs Temperature: 97.8 F Blood Pressure: 105/63 Pulse: 61 Respirations: 15 - Physical Exam General: Alert, In no apparent distress, Oriented x3, Cooperative HEENT: Atraumatic, NC, no pallor or icterus, throat moist, clear Neck: Supple, palpable, no palpable LAD Respiratory: decreased BS left base; Clear to auscultation on right Cardiovascular: Normal pulses, Regular rate/rhythm Gastrointestinal: Normal bowel sounds, Soft and benign, Non-distended, No masses, No rebound, No guarding Neuromus: AAOx3, verbal, able to lift right LE against gravity- 5/5; left: unable to left against gravity due to hip pain 4/5 Breast: Left breast: matted mass involving majority of the left breast involving the chest wall and axilla matted LN int he axilla, Supraclavicular region. No open wounds. Studies: Lab 03/07/20 03:40: PT 11.9, INR 1.01 03/07/20 03:20: WBC 8.3, Hgb 14.9, Hct 43.0, Plt Count 383 03/07/20 03:20: Sodium 139, Potassium 3.7, BUN 19 H, Creatinine 1.06, Glucose 123 H, Magnesium 1.7 L, Total Bilirubin 0.4, AST 43 H, ALT 27, Alkaline Phosphatase 83, Lipase 105 Imaging Venous Doppler of the extremity showed no DVT. X-ray shows fracture. CT scan shows no evidence of aneurysm or dissection. Extensive adenopathy along the left chest wall, left axilla, supraclavicular region coupled with diffuse skin thickening of the left breast indicative of breast cancer. Extensive bony metastasis throughout the axial and appendicular skeleton noted. Moderate left pleural effusion with some atelectasis noted Assessment/ Recommendations 64 year old woman with recent diagnosis of breast cancer admitted for pain management. 1. Metastatic breast cancer: As per the path report from [facility], she has infiltrating ductal carcinoma ER+, SC negative, [id number] 3+ by IHC Imaging shows extensive left breast disease with regional LN involvement causing Upper extremity edema, extensive bone metastasis and moderate left pleural effusion. We discussed at length that this is Stage IV disease and treatment is aimed with a palliative intent to prolong survival and symptom relief and not for cure. She and her daughter became tearful knowing about the extent of the disease. She wi shes to try her best with treatment as much as possible and also establish care here locally in [place]. We discussed possible treatment scenarios with endocrine therapy + immunotherapy+ chemotherapy as well. Will reassess once discharged and decide on appropriate regimen based on her tolerance. At this time priority is pain control. > get pertinent medical records and complete path report from [facility] > MRI Brain w and w/o C+ to r/o mets > MRI LS Spine w and w/o C+ to r/o epidural disease 2. Intractable pain due to bone mets: She seems to be comfortable on Morphine 2mg IV which she seems to be getting q 4-6 hourly and HCAP 7.5/325mg q6h prn. She may be transitioned to Morphine extended release 30mg [id number] for long acting pain relief and HCAP (same dose) q 6-8 hourly prn for breakthrough pain. Anti-inflammatory drugs like ibuprofen 400mg tid with food can also be tried for breakthrough pain PRN. I spent quite a bit of time educating on pain management, side effects, risks and benefits of opioids. Avoid if SOB or drowsy and seek medical attention if in respiratory depression/ change in baseline status. Take stool softeners for constipation. She will need bisphosphonate therapy to prevent skeletal related events. 3. Left pleural effusion: Likely secondary to underlying disease. She is not overtly symptomatic at this time. WIll monitor response with treatment and do intervention with thoracentesis as indicated when symptomatic. 4. Other medical problems/ social issues: As per primary team. She will need assistance at home including physical and occupational therapy to help with activities of daily living. I will see her in clinic as outpatient for reassessment of pain, treatment outline 2-3 days after discharge. Please do not hesitate to contact me if any questions or concerns. D/w Dr Ritchie.
[2020-03-09] MEDS: MORPHINE 2 MG/ML SYR IV PRN (03:08)
[2020-03-09] MEDS: LEVOTHYROXINE SOD 0.112 MG TAB PO SCH (05:49)
[2020-03-09] MEDS: LEVOTHYROXINE SOD 0.025 MG TAB PO SCH (05:49)
[2020-03-09] MEDS: INSULIN -REGULAR HUMAN 50 UNIT/0.5 ML ML SQ SCH ×4 (07:30→21:00)
[2020-03-09] MEDS: ENSURE HIGH PROTEIN 237 ML CAN PO SCH ×3 (09:00→20:21)
--- NOTE | 2020-03-09 09:28 | P.PN ---
Subjective Date of Service: 03/09/20 Primary Care Provider: Dina Sarmiento NP; Oncology-[facility] Chief Complaint: Extremity pain Subjective: Other (Pain still present especially with movement. Otherwise stable) Physical Examination - Vital Signs Temperature: 97.0 F Blood Pressure: 133/72 Pulse: 60 Respirations: 16 Pulse Ox (%): 93 - Physical Exam General: Alert, In no apparent distress, Oriented x3, Cooperative HEENT: Atraumatic Neck: Supple Respiratory: Clear to auscultation bilaterally, Normal air movement Cardiovascular: Normal pulses, Regular rate/rhythm Gastrointestinal: Normal bowel sounds, Soft and benign, Non-distended, No rebound, No guarding Integumentary: Other (Pain with palpation to the extremities especially with movement. 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 Patient still not able to stand. Patient still with increased pain especially with movement. Case discussed at length with oncology. Will adjust pain medication for better control. Will start morphine extended release 15 mg twice daily. Will provide tramadol or hydrocodone for breakthrough pain. Will discontinue Neurontin. Encourage ambulation with physical therapy. Social work in process of arranging for home health, Ricardo lift, hospital bed, and other needs at home. This will likely occur on Wednesday. Oncology reports that treatment will be aimed for palliative intent to prolong survival and send thin relieved in not for cure. This was detailed with the patient again today along with family. Advanced di rectives readdressed along with a advance care planning as stated above. Patient wishes to be full code at this time. If her condition continues decline in the future then she will consider other measures. This may include hospice in the future. Patient will need follow up with oncology this coming Wednesday for treatment scenarios including endocrine therapy plus immunotherapy plus chemotherapy. Fall precautions in place. Diabetes mellitus type 2 [id number]: Will continue Accu-Cheks and sliding scale. A1c 6.8. Will restart metformin but daily. Hypothyroidism: Continue home medication. Tsh within normal range Moderate left Pleural effusion with atelectasis likely chronic: Will provide incentive spirometer. Will monitor closely. Pleural effusion likely malignant in nature related to breast cancer. Overall stable. No requirement of oxygen required. Acute renal injury likely dehydration: This has improved. Continue with supplemental nutrition. Mild protein malnutrition: Continue with supplementation. Encourage oral intake. Will provide supplemental nutrition. Advanced care planning/advanced directives: Total time-30 min Time Spent Managing Pts Care (In Minutes): 45
[2020-03-09] MEDS: MORPHINE *EXTENDED RELEASE* 15 MG TAB PO SCH ×2 (10:14→20:19)
[2020-03-09] MEDS: HYDROCODONE/APAP 7.5/325 MG TAB PO PRN (10:16)
[2020-03-09] MEDS: METFORMIN HCL 500 MG TAB PO SCH (10:16)
[2020-03-09] MEDS: LIDOCAINE 4% PATCH TOP SCH (10:20)
[2020-03-09] MEDS: ENOXAPARIN 40 MG/0.4 ML SQ SCH (10:20)
[2020-03-09] MEDS: ONDANSETRON 4 MG/2 ML VIAL IV PRN ×2 (12:25→17:54)
[2020-03-10] MEDS: HYDROCODONE/APAP 7.5/325 MG TAB PO PRN ×2 (03:37→17:49)
[2020-03-10] MEDS: LEVOTHYROXINE SOD 0.025 MG TAB PO SCH (05:53)
[2020-03-10] MEDS: LEVOTHYROXINE SOD 0.112 MG TAB PO SCH (05:54)
[2020-03-10] MEDS: INSULIN -REGULAR HUMAN 50 UNIT/0.5 ML ML SQ SCH ×4 (07:30→20:39)
[2020-03-10] MEDS: MORPHINE *EXTENDED RELEASE* 15 MG TAB PO SCH ×3 (09:00→20:39)
[2020-03-10] MEDS: ENSURE HIGH PROTEIN 237 ML CAN PO SCH ×3 (09:00→20:37)
[2020-03-10] MEDS: ENOXAPARIN 40 MG/0.4 ML SQ SCH (09:42)
[2020-03-10] MEDS: LIDOCAINE 4% PATCH TOP SCH (09:42)
[2020-03-10] MEDS: METFORMIN HCL 500 MG TAB PO SCH (09:52)
[2020-03-10] MEDS: ANASTROZOLE 1 MG TAB PO SCH (09:53)
[2020-03-10] MEDS: ONDANSETRON 4 MG/2 ML VIAL IV PRN ×2 (10:11→17:51)
--- NOTE | 2020-03-10 10:58 | P.PN ---
Subjective Date of Service: 03/10/20 Primary Care Provider: Dina Sarmiento NP; Oncology-[facility] Chief Complaint: Extremity pain Subjective: Improving (Pain better controlled. Still not able to sit or stand. Pain with movement.) Physical Examination - Vital Signs Temperature: 97.2 F Blood Pressure: 124/66 Pulse: 67 Respirations: 17 Pulse Ox (%): 95 - Physical Exam General: Alert, In no apparent distress, Oriented x3, Cooperative HEENT: Atraumatic Neck: Supple Respiratory: Clear to auscultation bilaterally, Normal air movement Cardiovascular: Normal pulses, Regular rate/rhythm Gastrointestinal: Normal bowel sounds, Soft and benign, Non-distended, No masses, No rebound, No guarding Musculoskeletal: Other (Pain with movement. 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 Pain noted with movement. Case discussed at length with oncology yesterday. Advanced directives and the advanced care planning readdress today. Patient understands her current condition and prognosis. Patient wishes to be do not resuscitate. Options including home health with physical therapy versus hospice versus other was address in detail. Today, patient desires to go home with hospice if she is not able to ambulate and go to chemotherapy later this week. I explained to the patient and family that oncology prefers that her condition be treated but ultimately she has the final say. I will increase her extended- release morphine to 30 mg twice daily. Hopefully this will help control the pain to the point to where she may ambulate. If pain persists and she is not able to ambulate she will consider hospice. Patient will ultimately consider hospice if she does not desire to do chemotherapy. Oncology will come by tomorrow to readdress this in detail. Continue pain control at this time. Will discuss with psych social worker about the possibility of home health with physical therapy/stu lift/hospital bed verses hospice at discharge. She will make a final decision tomorrow after speaking to oncology and will see how she does w ith pain control. I will turn the service over to the hospitalist team tomorrow. I will go plan of care with him. Diabetes mellitus type 2 [id number]: Will continue Accu-Cheks and sliding scale. A1c 6.8. Metformin restarted. Hypothyroidism: Continue home medication. Tsh within normal range Moderate left Pleural effusion with atelectasis likely chronic: Will provide incentive spirometer. Will monitor closely. Pleural effusion likely malignant in nature related to breast cancer. Overall stable. No requirement of oxygen required. Acute renal injury likely dehydration: This has improved. Continue with supplemental nutrition. Mild protein malnutrition: Continue with supplementation. Encourage oral intake. Will provide supplemental nutrition. Advanced care planning/advanced directives: Total time-45 min Time Spent Managing Pts Care (In Minutes): 45
[2020-03-11] MEDS: LEVOTHYROXINE SOD 0.112 MG TAB PO SCH (06:20)
[2020-03-11] MEDS: LEVOTHYROXINE SOD 0.025 MG TAB PO SCH (06:20)
[2020-03-11] MEDS: INSULIN -REGULAR HUMAN 50 UNIT/0.5 ML ML SQ SCH ×4 (07:30→20:49)
[2020-03-11] MEDS: ONDANSETRON 4 MG/2 ML VIAL IV PRN (09:34)
[2020-03-11] MEDS: ANASTROZOLE 1 MG TAB PO SCH (09:42)
[2020-03-11] MEDS: MORPHINE *EXTENDED RELEASE* 15 MG TAB PO SCH (09:43)
[2020-03-11] MEDS: ENSURE HIGH PROTEIN 237 ML CAN PO SCH ×3 (09:45→20:49)
[2020-03-11] MEDS: METFORMIN HCL 500 MG TAB PO SCH (09:47)
[2020-03-11] MEDS: ENOXAPARIN 40 MG/0.4 ML SQ SCH (09:48)
[2020-03-11] MEDS: LIDOCAINE 4% PATCH TOP SCH (09:48)
--- NOTE | 2020-03-11 12:09 | P.PN ---
Subjective Date of Service: 03/11/20 Primary Care Provider: Dina Sarmiento NP; Oncology-[facility] Chief Complaint: Extremity pain Subjective: No new changes, C/O voiced (still generalized body pains - seen in room with daughter at bedside -state she will like to go to home hospice now , does not want any chemo - she was intially requesting no need to talk with oncology but later agreeable to meeting with them today -admit to persistent nausea) Physical Examination - Vital Signs Temperature: 98.1 F Blood Pressure: 107/54 Pulse: 67 Respirations: 19 Pulse Ox (%): 94 - Physical Exam General: Alert, In no apparent distress, Oriented x3 HEENT: Atraumatic, Normocephalic, PERRLA Neck: 2+ carotid pulse no bruit, JVD not distended Respiratory: Clear to auscultation bilaterally, Normal air movement Cardiovascular: Normal pulses, Regular rate/rhythm Gastrointestinal: Normal bowel sounds, Soft and benign Musculoskeletal: No clubbing, No swelling Integumentary: No rashes, No breakdown Neurological: Normal speech, Normal strength at 5/5 x4 extr - Studies Laboratory Last Values WBC 10.1 K/uL (4.3-10.9) D 03/08/20 05:39 RBC 4.27 M/uL (3.86-4.86) 03/08/20 05:39 Hgb 13.5 g/dL (12.0-15.0) 03/08/20 05:39 Hct 37.8 % (36.0-45.0) 03/08/20 05:39 MCV 88.6 fL (80-100) 03/08/20 05:39 MCH 31.6 pg (27.0-35.0) 03/08/20 05:39 MCHC 35.7 g/dL (32.0-36.0) 03/08/20 05:39 RDW 13.1 % (12.1-15.2) 03/08/20 05:39 Plt Count 385 K/uL (152-406) 03/08/20 05:39 MPV 8.0 fL (7.6-11.3) 03/08/20 05:39 Neutrophils % 58.7 % (41.7-73.7) 03/08/20 05:39 Lymphocytes % 29.1 % (15.3-44.8) 03/08/20 05:39 Monocytes % 11.3 % (3.3-12.3) 03/08/20 05:39 Eosinophils % 0.2 % (0-4.4) 03/08/20 05:39 Basophils % 0.7 % (0-1.3) 03/08/20 05:39 Absolute Neutrophils 5.9 K/uL (1.8-8.0) 03/08/20 05:39 Absolute Lymphocytes 2.9 K/uL (0.7-4.9) 03/08/20 05:39 Absolute Monocytes 1.1 K/uL (0.1-1.3) 03/08/20 05:39 Absolute Eosinophils 0.0 K/uL (0-0.5) 03/08/20 05:39 Absolute Basophils 0.1 K/uL (0-0.5) 03/08/20 05:39 PT 11.9 SECONDS (9.5-12.5) 03/07/20 03:40 INR 1.01 03/07/20 03:40 Sodium 140 mmol/L (136-145) 03/08/20 05:39 Potassium 3.9 mmol/L (3.5-5.1) 03/08/20 05:39 Chloride 108 mmol/L (98-107) H 03/08/20 05:39 Carbon Dioxide 24 mmol/L (21-32) 03/08/20 05:39 BUN 24 mg/dL (7-18) H 03/08/20 05:39 Creatinine 0.76 mg/dL (0.55-1.3) 03/08/20 05:39 Estimated GFR 77 mL/min (=/>90) L 03/08/20 05:39 Glucose 107 mg/dL (74-106) H 03/08/20 05:39 POC Glucose 163 mg/dL (65-120) H 03/08/20 15:59 Calcium 9.5 mg/dL (8.5-10.1) 03/08/20 05:39 Magnesium 2.0 mg/dL (1.8-2.4) 03/08/20 05:39 Total Bilirubin 0.4 mg/dL (0.2-1.0) 03/07/20 03:20 Direct Bilirubin < 0.1 mg/dL (0-0.2) 03/07/20 03:20 AST 43 U/L (15-37) H 03/07/20 03:20 ALT 27 U/L (12-78) 03/07/20 03:20 Alkaline Phosphatase 83 U/L (45-117) 03/07/20 03:20 Rapid Troponin I < 0.02 ng/mL (0.0-0.045) 03/07/20 03:20 NT-Pro-B Natriuret Pep 228 pg/mL (<125) H 03/07/20 03:20 Serum Total Protein 7.7 g/dL (6.4-8.2) 03/07/20 03:20 Albumin 3.4 g/dL (3.4-5.0) 03/07/20 03:20 Globulin 4.3 g/dL (2.3-3.5) H 03/07/20 03:20 Albumin/Globulin Ratio 0.8 (1.1-1.8) L 03/07/20 03:20 Lipase 105 U/L (73-393) 03/07/20 03:20 TSH 2.370 uIU/mL (0.360-3.740) 03/08/20 05:39 Free T4 1.30 ng/dL (0.76-1.46) 03/08/20 05:39 Medications List Reviewed: Yes Assessment And Plan Physician Review: Patient Assessed, Agree with Above Assessment and Plan Physician Review Additional Text: A/P Intractable pain to numerous joints related to 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 Continue lidocaine patch to the lower back Continue attempts at PT with movement Patient discussed with in detail the about speaking with Oncology, she is agreeable now Will consult case management to also start planned for home hospice Will do trial of scopolamine patch Diabetes mellitus type 2 [id number]: Continue metformin, continue Accu-Cheks and insulin sliding scale Hypothyroidism: Continue home medication. Tsh within normal range Moderate left Pleural effusion with atelectasis likely chronic: Stable, Pleural effusion likely malignant in nature related to breast cancer. Acute renal injury likely dehydration: Improved. Mild protein malnutrition: Continue with supplementation. Encourage oral intake. Will provide supplemental nutrition
[2020-03-11] MEDS ORDERED: FENTANYL 50 MCG/PATCH TD SCH (12:14)
[2020-03-11] MEDS ORDERED: SCOPOLAMINE HYDROBROMIDE PATCH TD ONE (12:25)
[2020-03-11 12:45] VITALS: O2SAT 95
[2020-03-11] MEDS: MORPHINE SULF 10 MG/5 ML OSYR PO PRN ×2 (13:23→20:48)
[2020-03-11 20:28] VITALS: BP 119/60; TEMP 97.6
== END 2020-03-11 21:15 | disposition hospice, home (50) | DRG 948 ==
LOC: ER 02:27 → ERHOLD 08:06 → 2ND 10:49 → OBSVTOIN 03-08 16:32
PROVIDERS: ADMIT Family Medicine; ATTEND Family Medicine
DX: G89.3 Neoplasm related pain (acute) (chronic) (principal); C79.51 Secondary malignant neoplasm of bone; N17.9 Acute kidney failure, unspecified; J98.11 Atelectasis; J91.0 Malignant pleural effusion; C79.31 Secondary malignant neoplasm of brain; E44.1 Mild protein-calorie malnutrition; E11.9 Type 2 diabetes mellitus without complications; E86.0 Dehydration; C50.912 Malignant neoplasm of unspecified site of left female breast; E03.9 Hypothyroidism, unspecified; Z87.891 Personal history of nicotine dependence; Z79.84 Long term (current) use of oral hypoglycemic drugs; Z79.890 Hormone replacement therapy; Z66 Do not resuscitate; Z17.0 Estrogen receptor positive status [ER+]; Z68.26 Body mass index [BMI] 26.0-26.9, adult
CPT/HCPCS: 36415; 70553; 71045; 71275; 72158; 72197; 74175; 80048; 80076; 82947; 83036; 83690; 83735; 83880; 84439; 84443; 84484; 85025; 85610; 93005; 93971; 97110; 97112; 97161; 97165; 97530; 99285; A9577; G0378; J1100; J1170; J1650; J2270; J2405; J3475; J7030; J7040; Q9967